=== PATIENT | female | born 1985 | race Caucasian/White ===

== ENCOUNTER 2019-02-16 19:59 | Emergency (ER) | payer BC ==
[2019-02-16] MEDS ORDERED: Lidocaine 1% 30 ML SDV INJECT ONE (20:16)
--- NOTE | 2019-02-16 20:35 | EDM.PDOC ---
ED HPI GENERAL MEDICAL PROBLEM - General Chief Complaint: Skin Complaint Stated Complaint: ABSCESS ON LEG Time Seen by Provider: 02/16/19 20:10 Source of Information: Reports: Patient History Limitations: Reports: No Limitations - History of Present Illness INITIAL COMMENTS - FREE TEXT/NARRATIVE: This 34 yo female patient reports to the ED with an abscess on her left buttocks. The patient has noticed the symptoms for the past 3-4 days. The patient was seen in the [facility] earlier today and started on Doxycycline. The patient reports increased pain in the area since this morning. Duration: Day(s):, Constant, Getting Worse Location: Reports: Lower Extremity, Left Quality: Reports: Ache, Dull, Throbbing Severity: Moderate Improves with: Reports: None Worsens with: Reports: None Context: Reports: Other Associated Symptoms: Reports: No Other Symptoms Left Lower Abdomen Pain Score (Numeric/FACES): 10 - Related Data Allergies Allergy/AdvReac Type Severity Reaction Status Date / Time No Known Allergies Allergy Verified 02/16/19 20:03 Home Meds: Home Meds Clindamycin Phosphate [Cleocin T] 1 applic TP BID 02/16/19 [History] Doxycycline Hyclate 100 mg PO BID 02/16/19 [History] Past Medical History HEENT History: Reports: Impaired Vision Cardiovascular History: Reports: Hypertension Dermatologic History: Reports: Other (See Below) Other Dermatologic History: hidradenitis suppurativa Social & Family History - Tobacco Use Smoking Status *Q: Current Every Day Smoker Years of Tobacco use: 20 Packs/Tins Daily: 0.5 - Caffeine Use Caffeine Use: Reports: Tea - Recreational Drug Use Recreational Drug Use: No ED ROS GENERAL - Review of Systems Review Of Systems: ROS reveals no pertinent complaints other than HPI. ED EXAM, SKIN/RASH Exam: See Below Exam Limited By: No Limitations General Appearance: Alert, WD/WN, Mild Distress Eye Exam: Bilateral Eye: EOMI, Normal Inspection, PERRL Ears: Normal External Exam, Normal Canal, Hearing Grossly Normal, Normal TMs Nose: Normal Inspection, Normal Mucosa, No Blood Throat/Mouth: Normal Inspection, Normal Lips, Normal Teeth, Normal Gums, Normal Oropharynx, Normal Voice, No Airway Compromise Head: Atraumatic, Normocephalic Neck: Normal Inspection, Supple, Non-Tender, Full Range of Motion Respiratory/Chest: No Respiratory Distress, Lungs Clear, Normal Breath Sounds, No Accessory Muscle Use, Chest Non-Tender Cardiovascular: Normal Peripheral Pulses, Regular Rate, Rhythm, No Edema, No Gallop, No JVD, No Murmur, No Rub (Female) Exam: Deferred Rectal (Female) Exam: Deferred Back Exam: Normal Inspection, Full Range of Motion, NT Extremities: Normal Inspection, Normal Range of Motion, Non-Tender, No Pedal Edema, Normal Capillary Refill Neurological: Alert, Oriented, CN II-XII Intact, Normal Cognition, Normal Gait, Normal Reflexes, No Motor/Sensory Deficits Psychiatric: Normal Affect, Normal Mood Skin: Erythema Location, Skin: Lower Extremity, Left Characteristics: Confluent, Erythematous Associated features: Warmth, Tenderness, Swelling, Induration, Inflammation Lymphatic: No Adenopathy ED SKIN PROCEDURES - I&D Site: left bottocks Skin Prep: Providone-Iodine (Betadine), Isopropyl Alcohol (Alcohol) Local Anesthesia: Lidocaine: 1% Plain Local Anesthetic Volume: 4cc Area Incised With: 11 Blade Drainage: Purulent, Bloody, Moderate Amount Probed to Break Up Loculations: No Packed With: None Sterile Dressinx4(s) Complications: No Course - Vital Signs Last Recorded V/S: Last Vital Signs Temp 36.7 C 02/16/19 20:07 Pulse 108 H 02/16/19 20:07 Resp 20 02/16/19 20:07 BP 168/97 H 02/16/19 20:07 Pulse Ox 96 02/16/19 20:07 - Orders/Labs/Meds Orders: Active Orders 24 hr Category Date Time Status CULTURE WOUND [RM] Stat Lab 02/16/19 20:21 Ordered Meds: Medications Discontinued Medications Generic Name Dose Route Start Last Admin Trade Name Ludy PRN Reason Stop Dose Admin Lidocaine HCl 30 ml 02/16/19 20:16 02/16/19 20:24 Xylocaine-Mpf 1% INJECT 02/16/19 20:17 30 ml ONETIME ONE Administration Departure - Departure Time of Disposition: 20:33 Disposition: Home, Self-Care 01 Condition: Fair Clinical Impression: Abscess - Discharge Information *PRESCRIPTION DRUG MONITORING PROGRAM REVIEWED*: Not Applicable *COPY OF PRESCRIPTION DRUG MONITORING REPORT IN PATIENT MILADIS: Not Applicable Instructions: Incision and Drainage, Care After, Skin Abscess Care Plan Goals: The patient was advised of the examination results during the visit. The patient 's abscess was incised and drained while in the ED. The patient was encouraged to keep the area clean and dry tonight. The patient should take her antibiotics as prescribed. If the patient has any additional symptoms or concerns, the patient should either visit her primary care facility or return to the emergency department. - My Orders Last 24 Hours: My Active Orders 02/16/19 20:21 CULTURE WOUND [RM] Stat - Assessment/Plan Last 24 Hours: My Active Orders 02/16/19 20:21 CULTURE WOUND [RM] Stat
== END 2019-02-16 20:39 | disposition home or self-care (01) ==
LOC: DL.ED 19:59
DX: L02.31 Cutaneous abscess of buttock (principal); I10 Essential (primary) hypertension; F17.210 Nicotine dependence, cigarettes, uncomplicated
CPT/HCPCS: 10060; 87070; 99283; J2001

== ENCOUNTER 2020-05-12 09:00 | Emergency (ER) | payer BC ==
--- NOTE | 2020-05-12 09:08 | EDM.PDOC ---
ED HPI GENERAL MEDICAL PROBLEM - General Chief Complaint: Skin Complaint Stated Complaint: NEEDS ABSCESS LANCED Time Seen by Provider: 05/12/20 09:08 Source of Information: Reports: Patient, RN, RN Notes Reviewed History Limitations: Reports: No Limitations - History of Present Illness INITIAL COMMENTS - FREE TEXT/NARRATIVE: Pt presents to ER with c/o an abscess at the right upper medial thigh. Hx of hidradenitis suppurativa on Humira. Denies fever, chill, respiratory complaints, or COVID exposures. No Hx of MRSA. Onset: Gradual Duration: Day(s): (3-4), Constant, Getting Worse Location: Reports: Lower Extremity, Right Quality: Reports: Ache, Same as Previous Episode Severity: Moderate Improves with: Reports: None Worsens with: Reports: Movement Associated Symptoms: Reports: No Other Symptoms - Related Data Allergies Allergy/AdvReac Type Severity Reaction Status Date / Time No Known Allergies Allergy Verified 02/16/19 20:03 Home Meds: Home Meds Clindamycin Phosphate [Cleocin T] 1 applic TP BID 02/16/19 [History] Doxycycline Hyclate 100 mg PO BID 02/16/19 [History] Past Medical History HEENT History: Reports: Impaired Vision Cardiovascular History: Reports: Hypertension Endocrine/Metabolic History: Reports: Obesity/BMI 30+ Dermatologic History: Reports: Other (See Below) Other Dermatologic History: hidradenitis suppurativa Social & Family History - Family History Family Medical History: Noncontributory - Caffeine Use Caffeine Use: Reports: Tea - Living Situation & Occupation Living situation: Reports: with Family ED ROS GENERAL - Review of Systems Review Of Systems: Comprehensive ROS is negative, except as noted in HPI. ED EXAM, SKIN/RASH Exam: See Below Exam Limited By: No Limitations General Appearance: Alert, WD/WN, No Apparent Distress, Obese Head: Atraumatic, Normocephalic Respiratory/Chest: No Respiratory Distress, Lungs Clear Cardiovascular: Normal Peripheral Pulses, Regular Rate, Rhythm GI/Abdominal: Normal Bowel Sounds, Soft, Non-Tender Extremities: Normal Range of Motion, No Pedal Edema, Normal Capillary Refill, Other (3cm fluctuant abscess with 12cm radha. surrounding area of erythema, no in creased warmth, or purulent drainage). No: Joint Swelling Neurological: Alert, Oriented, No Motor/Sensory Deficits Psychiatric: Normal Mood Skin: Warm, Dry ED SKIN PROCEDURES - I&D Site: Right proximal medial thigh Skin Prep: Chlorhexidine (Hibiciens), Saline, Sterile Drape Local Anesthesia: Lidocaine: 1% Plain Local Anesthetic Volume: Other (10cc) Area Incised With: 11 Blade Drainage: Purulent, Bloody, Moderate Amount Probed to Break Up Loculations: Yes Packed With: 1/4 in. Iodoform Sterile Dressinx4(s) Complications: No Course - Orders/Labs/Meds Orders: Active Orders 24 hr Category Date Time Status Bacitracin [Bacitracin Oint 1 GM] Med 05/12/20 09:15 Once 1 dose TOP ONETIME ONE Lidocaine 1% [Xylocaine-MPF 1%] Med 05/12/20 09:15 Once 30 ml INJECT ONETIME ONE clindamycin HCL [Cleocin] Med 05/12/20 09:15 Once 300 mg PO ONETIME ONE Medication Orders Bacitracin (Bacitracin Oint 1 Gm) 1 dose TOP ONETIME ONE Stop: 05/12/20 09:16 Clindamycin HCl (Cleocin) 300 mg PO ONETIME ONE Stop: 05/12/20 09:16 Lidocaine HCl (Xylocaine-Mpf 1%) 30 ml INJECT ONETIME ONE Stop: 05/12/20 09:16 Meds: Medications Generic Name Dose Route Start Last Admin Trade Name Ludy PRN Reason Stop Dose Admin Bacitracin 1 dose 05/12/20 09:15 Bacitracin Oint 1 Gm TOP 05/12/20 09:16 ONETIME ONE Clindamycin HCl 300 mg 05/12/20 09:15 Cleocin PO 05/12/20 09:16 ONETIME ONE Lidocaine HCl 30 ml 05/12/20 09:15 Xylocaine-Mpf 1% INJECT 05/12/20 09:16 ONETIME ONE Departure - Departure Time of Disposition: 10:00 Disposition: Home, Self-Care 01 Condition: Good Clinical Impression: Abscess of right thigh - Discharge Information *PRESCRIPTION DRUG MONITORING PROGRAM REVIEWED*: Not Applicable *COPY OF PRESCRIPTION DRUG MONITORING REPORT IN PATIENT MILADIS: Not Applicable Instructions: Skin Abscess, Incision and Drainage, Care After Forms: ED Department Discharge Additional Instructions: Rx: Clindamycin 300mg Remove packing or follow up in clinic in one to two days to remove packing if it doesn't fall out on its own. - My Orders Last 24 Hours: My Active Orders 05/12/20 09:15 Bacitracin [Bacitracin Oint 1 GM] 1 dose TOP ONETIME ONE Lidocaine 1% [Xylocaine-MPF 1%] 30 ml INJECT ONETIME ONE clindamycin HCL [Cleocin] 300 mg PO ONETIME ONE - Assessment/Plan Last 24 Hours: My Active Orders 05/12/20 09:15 Bacitracin [Bacitracin Oint 1 GM] 1 dose TOP ONETIME ONE Lidocaine 1% [Xylocaine-MPF 1%] 30 ml INJECT ONETIME ONE clindamycin HCL [Cleocin] 300 mg PO ONETIME ONE
[2020-05-12] MEDS ORDERED: Bacitracin Oint 1 GM U/D Packet TOP ONE (09:15)
[2020-05-12] MEDS ORDERED: Clindamycin HCl 150 MG Cap PO ONE (09:15)
[2020-05-12] MEDS ORDERED: Lidocaine 1% 30 ML SDV INJECT ONE (09:15)
== END 2020-05-12 09:51 | disposition home or self-care (01) ==
LOC: DL.ED 09:00
DX: L02.415 Cutaneous abscess of right lower limb (principal); I10 Essential (primary) hypertension; E66.9 Obesity, unspecified; Z68.42 Body mass index [BMI] 45.0-49.9, adult
CPT/HCPCS: 10061; 87070; 99283; A9270; J2001; 87077; 87186

== ENCOUNTER 2020-05-28 13:31 | Emergency (ER) | payer BC | END 2020-05-28 13:56 | LOC: DL.ED 13:31 | DX: Z53.21 Procedure and treatment not carried out due to patient leaving prior to being seen by health care provider (principal) ==

== ENCOUNTER 2020-05-29 21:32 | Emergency (ER) | payer BC ==
--- NOTE | 2020-05-29 22:19 | EDM.PDOC ---
ED HPI GENERAL MEDICAL PROBLEM - General Chief Complaint: Skin Complaint Stated Complaint: ABSCESS Time Seen by Provider: 05/29/20 22:14 Source of Information: Reports: Patient History Limitations: Reports: No Limitations - History of Present Illness INITIAL COMMENTS - FREE TEXT/NARRATIVE: present abscess started tuesday taking doxy from [facility] but starting to get bigger and center looks darker. Right Thigh Pain Score (Numeric/FACES): 8 - Related Data Allergies Allergy/AdvReac Type Severity Reaction Status Date / Time No Known Allergies Allergy Verified 05/29/20 21:42 Home Meds: Home Meds Adalimumab [Humira(Cf) Pen] 1 injection SUBCUT ASDIRECTED 05/12/20 [History] Venlafaxine [Effexor XR] 75 mg PO DAILY 05/12/20 [History] hydrOXYzine HCL [Hydroxyzine HCl] 10 mg PO DAILY 05/12/20 [History] hydroCHLOROthiazide [Hydrochlorothiazide] 25 mg PO DAILY 05/12/20 [History] Doxycycline [Doxycycline Monohydrate] 100 mg PO BID 05/29/20 [History] Past Medical History HEENT History: Reports: Impaired Vision Cardiovascular History: Reports: Hypertension Endocrine/Metabolic History: Reports: Obesity/BMI 30+ Dermatologic History: Reports: Other (See Below) Other Dermatologic History: hidradenitis suppurativa Social & Family History - Family History Family Medical History: Noncontributory - Tobacco Use Smoking Status *Q: Current Every Day Smoker Years of Tobacco use: 20 Packs/Tins Daily: 0.5 Second Hand Smoke Exposure: Yes - Caffeine Use Caffeine Use: Reports: Tea - Recreational Drug Use Recreational Drug Use: No - Living Situation & Occupation Living situation: Reports: with Family ED ROS GENERAL - Review of Systems Review Of Systems: Comprehensive ROS is negative, except as noted in HPI. ED EXAM, SKIN/RASH Exam: See Below Exam Limited By: No Limitations General Appearance: Alert, WD/WN, Mild Distress, Other (discomfort) Ears: Hearing Grossly Normal Throat/Mouth: Normal Voice, No Airway Compromise Head: Atraumatic Neck: Non-Tender, Full Range of Motion Respiratory/Chest: No Respiratory Distress Cardiovascular: Regular Rate, Rhythm GI/Abdominal: Soft, Non-Tender Extremities: Other (right upper medial thigh tender erytematous abscess.) Neurological: Alert, Oriented, Normal Cognition, Normal Gait, No Motor/Sensory Deficits Psychiatric: Normal Affect, Normal Mood Skin: Warm, Dry, Normal Color. No: Lymphangitis Location, Skin: Lower Extremity, Right Characteristics: Erythematous, Other (abscess) Associated features: Warmth, Tenderness, Swelling, Inflammation. No: Lymphangitis, Weeping Lymphatic: No Adenopathy ED SKIN PROCEDURES - I&D Site: right medial thigh Skin Prep: Providone-Iodine (Betadine) Local Anesthesia: Lidocaine: Other (etcl pray) Area Incised With: 11 Blade Drainage: Purulent, Bloody, Moderate Amount Probed to Break Up Loculations: No Packed With: None Sterile Dressing: Other Complications: No Course - Vital Signs Last Recorded V/S: Last Vital Signs Temp 36.8 C 05/29/20 21:38 Pulse 105 H 05/29/20 21:38 Resp 18 05/29/20 21:38 BP 192/94 H 05/29/20 21:38 Pulse Ox 95 05/29/20 21:38 Departure - Departure Time of Disposition: 22:18 Disposition: Home, Self-Care 01 Condition: Good Clinical Impression: Abscess of right thigh - Discharge Information Instructions: Skin Abscess, [id number] Additional Instructions: 1) keep area clean dry covered 2) follow up at clinic Sepsis Event Note (ED) - Evaluation Sepsis Screening Result: No Definite Risk - Focused Exam Vital Signs: Vital Signs Temp Pulse Resp BP Pulse Ox 05/29/20 21:38 36.8 C 105 H 18 192/94 H 95
== END 2020-05-29 22:27 | disposition home or self-care (01) ==
LOC: DL.ED 21:32
DX: L02.415 Cutaneous abscess of right lower limb (principal); I10 Essential (primary) hypertension; E66.9 Obesity, unspecified; F17.210 Nicotine dependence, cigarettes, uncomplicated; Z68.42 Body mass index [BMI] 45.0-49.9, adult; Z79.899 Other long term (current) drug therapy
CPT/HCPCS: 10060; 87070; 87077; 87186; 99283; 99283-25

== ENCOUNTER 2020-10-04 20:21 | Emergency (ER) | payer BC ==
[2020-10-04] MEDS ORDERED: Acetaminophen/HYDROcodone 325-10 MG Tab PO ONE (20:22)
[2020-10-04] MEDS ORDERED: Triamcinolone Acetonide 40 MG/ML 1 ML SDV INJECT ONE (20:52)
--- NOTE | 2020-10-04 20:58 | EDM.PDOC ---
ED HPI GENERAL MEDICAL PROBLEM - General Chief Complaint: Skin Complaint Stated Complaint: ABSCESS LEFT SIDE UNDER BEHIND Time Seen by Provider: 10/04/20 20:52 Source of Information: Reports: Patient History Limitations: Reports: No Limitations - History of Present Illness INITIAL COMMENTS - FREE TEXT/NARRATIVE: give recurrent h/o abscess and her Legal Biller will inject kenalog near or into the abscess instead of I&D. already taking minocycline. present episode onset 2 days now and been using hot compress and clindamycin topical but not working well. Left Thigh Pain Score (Numeric/FACES): 7 - Related Data Allergies Allergy/AdvReac Type Severity Reaction Status Date / Time Quiana Allergy Other Uncoded 10/04/20 20:53 Home Meds: Home Meds Adalimumab [Humira(Cf) Pen] 1 injection SUBCUT ASDIRECTED 05/12/20 [History] Venlafaxine [Effexor XR] 75 mg PO DAILY 05/12/20 [History] hydrOXYzine HCL [Hydroxyzine HCl] 10 mg PO DAILY 05/12/20 [History] hydroCHLOROthiazide [Hydrochlorothiazide] 25 mg PO DAILY 05/12/20 [History] Doxycycline [Doxycycline Monohydrate] 100 mg PO BID 05/29/20 [History] Past Medical History HEENT History: Reports: Impaired Vision Cardiovascular History: Reports: Hypertension Endocrine/Metabolic History: Reports: Obesity/BMI 30+ Dermatologic History: Reports: Other (See Below) Other Dermatologic History: hidradenitis suppurativa Social & Family History - Family History Family Medical History: No Pertinent Family History - Caffeine Use Caffeine Use: Reports: Tea - Living Situation & Occupation Living situation: Reports: with Family ED ROS GENERAL - Review of Systems Review Of Systems: Comprehensive ROS is negative, except as noted in HPI. ED EXAM, SKIN/RASH Exam: See Below Exam Limited By: No Limitations General Appearance: Alert, WD/WN, Mild Distress, Other (discomfort) Ears: Hearing Grossly Normal Throat/Mouth: Normal Voice, No Airway Compromise Head: Atraumatic Neck: Non-Tender, Full Range of Motion Respiratory/Chest: No Respiratory Distress Cardiovascular: Regular Rate, Rhythm GI/Abdominal: Soft, Non-Tender (Female) Exam: Deferred Rectal (Female) Exam: Deferred Extremities: Other (left posterior upper thigh firm abscess without lymphangitis and minimal erythema, NV wnl) Neurological: Alert, Oriented, Normal Cognition, Normal Gait, No Motor/Sensory Deficits Psychiatric: Normal Affect, Normal Mood Skin: Warm, Dry, Normal Color Location, Skin: Lower Extremity, Left Associated features: Tenderness, Swelling, Inflammation. No: Lymphangitis, Crusting, Weeping Lymphatic: No Adenopathy ED SKIN PROCEDURES - I&D Site: posterior left thigh Skin Prep: Providone-Iodine (Betadine) Local Anesthesia: Lidocaine: Other (spray) Area Incised With: Needle Drainage: Purulent, Bloody, Small Amount, Other (1ml purulosanguinous) Probed to Break Up Loculations: No Packed With: None Sterile Dressing: Other (bandaid) Complications: No Course - Vital Signs Last Recorded V/S: Last Vital Signs Temp 36.3 C 10/04/20 20:40 Pulse 95 10/04/20 20:40 Resp 17 10/04/20 20:40 BP 119/75 10/04/20 20:40 Pulse Ox 97 10/04/20 20:40 - Orders/Labs/Meds Orders: Active Orders 24 hr Category Date Time Status CULTURE WOUND [RM] Stat Lab 10/04/20 21:09 Ordered Meds: Medications Discontinued Medications Generic Name Dose Route Start Last Admin Trade Name Ludy PRN Reason Stop Dose Admin Hydrocodone Bitart/Acetaminophen Confirm 10/04/20 21:18 [place] 325-10 Mg Administered 10/04/20 21:19 Dose 1 tab .ROUTE .STK-MED ONE Triamcinolone Acetonide 20 mg 10/04/20 20:52 10/04/20 20:58 Kenalog-40 INJECT 10/04/20 20:53 20 mg ONETIME ONE Administration Departure - Departure Time of Disposition: 21:21 Disposition: Home, Self-Care 01 Condition: Good Clinical Impression: Abscess - Discharge Information Instructions: Skin Abscess, [id number] Forms: ED Department Discharge Additional Instructions: 1) continue present home treatment 2) keep wound clean dry covered 3) follow up at clinic and notify them of the abscess culture done tonight Sepsis Event Note (ED) - Focused Exam Vital Signs: Vital Signs Temp Pulse Resp BP Pulse Ox 10/04/20 20:40 36.3 C 95 17 119/75 97 - My Orders Last 24 Hours: My Active Orders 10/04/20 21:09 CULTURE WOUND [RM] Stat - Assessment/Plan Last 24 Hours: My Active Orders 10/04/20 21:09 CULTURE WOUND [RM] Stat
[2020-10-04] MEDS ORDERED: Acetaminophen/HYDROcodone 325-10 MG Tab ONE (21:18)
== END 2020-10-04 21:21 | disposition home or self-care (01) ==
LOC: DL.ED 20:21
DX: L02.416 Cutaneous abscess of left lower limb (principal); I10 Essential (primary) hypertension; E66.9 Obesity, unspecified; Z68.42 Body mass index [BMI] 45.0-49.9, adult; Z88.8 Allergy status to other drugs, medicaments and biological substances
CPT/HCPCS: 10060; 87070; 96374; 99283; A9270; J3301

== ENCOUNTER 2021-06-18 17:14 | Emergency (ER) | payer BC | END 2021-06-18 19:49 | disposition left against medical advice (07) | LOC: DL.ED 17:14 | DX: N76.4 Abscess of vulva (principal); Z53.21 Procedure and treatment not carried out due to patient leaving prior to being seen by health care provider ==

== ENCOUNTER 2021-09-23 12:53 | Emergency (ER) | payer BC | END 2021-09-23 13:26 | disposition left against medical advice (07) | LOC: DL.ED 12:53 | DX: L02.91 Cutaneous abscess, unspecified (principal); Z53.21 Procedure and treatment not carried out due to patient leaving prior to being seen by health care provider ==

== ENCOUNTER 2022-11-21 14:13 | Emergency (ER) | payer BC ==
[2022-11-21] MEDS ORDERED: Cephalexin 500 MG Cap PO ONE (14:44)
[2022-11-21] MEDS ORDERED: Fluconazole 100 MG Tab PO ONE (14:45)
== END 2022-11-21 15:24 | disposition home or self-care (01) ==
LOC: DL.ED 14:13
DX: T81.40XA Infection following a procedure, unspecified, initial encounter (principal); L30.4 Erythema intertrigo; I10 Essential (primary) hypertension; E66.9 Obesity, unspecified; Z91.040 Latex allergy status; Z88.0 Allergy status to penicillin; Z88.8 Allergy status to other drugs, medicaments and biological substances; Z91.048 Other nonmedicinal substance allergy status; Z79.899 Other long term (current) drug therapy; Z68.41 Body mass index [BMI] 40.0-44.9, adult
CPT/HCPCS: 99282; 99283; A9270-GY

== ENCOUNTER 2022-12-01 08:49 | Emergency (ER) | payer BC | END 2022-12-01 10:04 | disposition home or self-care (01) | LOC: DL.ED 08:49 | DX: M96.841 Postprocedural hematoma of a musculoskeletal structure following other procedure (principal); L73.2 Hidradenitis suppurativa; E78.00 Pure hypercholesterolemia, unspecified; I10 Essential (primary) hypertension; E11.9 Type 2 diabetes mellitus without complications; E66.9 Obesity, unspecified; Z68.41 Body mass index [BMI] 40.0-44.9, adult; Z72.0 Tobacco use; Z91.048 Other nonmedicinal substance allergy status; Z91.040 Latex allergy status; Z88.0 Allergy status to penicillin; Z79.84 Long term (current) use of oral hypoglycemic drugs; Z79.899 Other long term (current) drug therapy | CPT/HCPCS: 99282; 99283 ==